=== PATIENT | female | born 1950 | race Caucasian/White ===

== ENCOUNTER → 2021-02-23 11:03 | Outpatient (CLI) | payer MEDICARE, SELFPAY ==
--- NOTE | 2021-02-23 | DI.MRI.S_ITS ---
PROCEDURE: MR ABDOMEN WO/W CON INDICATIONS: Left upper quadrant abdominal swelling, mass. TECHNIQUE: Axial 2-D FLASH in- and [id number], axial breath-hold T2 FSE, axial STIR FSE. Optional contrast may be given, followed by axial 2-D FLASH with fat saturation acquired over the lesion of concern. COMPARISON: [facility], RG, CT ANGIO CHEST, 01/17/2021, 17:53. FINDINGS: Image quality: Excellent. 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 Overall, the mass measures 12.5 cm AP, 13.3 cm transverse and 24.9 cm cephalocaudal. The mass demonstrates internal septa. There is minimal contrast enhancement. There is mass effect to stomach, spleen, left kidney and bowel loops. Differential diagnosis for the large mass are a large lipoma or liposarcoma. Recommend tissue diagnosis. The mass can be safely biopsied under CT or ultrasound guidance. Bones: Nearby osseous structures demonstrate normal overall marrow signal. 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 Differential diagnosis include a lipoma versus liposarcoma. Recommend tissue diagnosis. Dictated by: Elvin Skinner M.D. on 02/23/2021 at 12:10 Approved by: Elvin Skinner M.D. on 02/23/2021 at 17:26
== END ==
PROVIDERS: PCP Registered Nurse; Referring Provider Registered Nurse; Visit Provider Registered Nurse
DX: R19.02 Left upper quadrant abdominal swelling, mass and lump (principal)
CPT/HCPCS: 74183